=== PATIENT | male | born 1980 | race Caucasian/White ===

== ENCOUNTER 2017-05-20 15:39 | Inpatient (IN) | payer SELFPAY ==
[~2017-05-20] VITALS: Ht 175.3 cm; Wt 83.9 kg
[2017-05-20 16:02] VITALS: BP 154/96
[2017-05-20 17:32] LABS: HEMATOCRIT 46.8 % (36-52); MEAN CORPUSCULAR HEMOGLOBIN 29 pg (27-31); MEAN CORPUSCULAR HGB CONC 34 g/dL (33-37); MEAN CORPUSCULAR VOLUME 84 fL (80-94); PLATELET COUNT (AUTO) 197 K/uL (140-450); RED BLOOD CELL COUNT(AUTO) 5.55 MIL/uL (4.20-6.10); RED CELL DISTRIBUTION WIDTH 13.7 % (11.6-13.7); WHITE BLOOD COUNT (AUTO) 15.6 K/uL (4.8-10.8)
[2017-05-20 17:36] LABS: APPEARANCE,URINE CLEAR (CLEAR); BLOOD, URINE 1+ (NEGATIVE); LEUKOCYTE ESTERASE ,URINE NEGATIVE (NEGATIVE); PROTEIN,URINE 2+ (NEGATIVE); UGLUCOSE NEGATIVE (NEGATIVE)
[2017-05-20 17:39] LABS: COLOR,URINE AMBER (YELLOW); NITRITE, URINE NEGATIVE (NEGATIVE); UROBILINOGEN,URINE 0.2 EU/dL (0.2 - 1)
[2017-05-20 17:41] LABS: ANION GAP 11.7 (8-16); CALCIUM 9.3 mg/dL (8.5-10.1); CARBON DIOXIDE 31.1 mmol/L (21-32); POTASSIUM 4.8 mmol/L (3.5-5.1)
[2017-05-20 17:41] LABS: BILIRUBIN,URINE NEGATIVE (NEGATIVE)
[2017-05-20 17:44] LABS: BACTERIA,URINE RARE /HPF (None Seen); MUCUS,URINE 3+ /LPF (None Seen); SQUAMOUS EPITHELIAL CELL,UR 0-3 /LPF (0-3 (FEW)); WBC,URINE 0-3 /HPF (0-5)
[2017-05-20 17:46] LABS: TOTAL BILIRUBIN 2.7 mg/dL (0.0-1.0); TOTAL PROTEIN, SERUM 8.6 g/dL (6.4-8.2)
--- NOTE | 2017-05-20 18:03 | NUR ---
Patient to bed 04.
[2017-05-20 18:08] LABS: BAND % (MANUAL) 11 % (0-8); LYMPHOCYTES % (MANUAL) 7 % (20-46); MONOCYTES % (MANUAL) 9 % (5-12); NEUTROPHILS % (MANUAL) 73 (43-65); PLATELET ESTIMATE ADEQUATE
--- NOTE | 2017-05-20 18:10 | NUR ---
36M BIB SELF C/O MID-ABDOMINAL PAIN, SHARP, NON-RADIATING, 10/10 X 3 DAYS; PT C/O 3 EPISODES OF VOMITING W/ BLOOD AND 3 EPISODES OF DIARRHEA WITHOUT BLOOD TODAY; ABDOMEN SOFT, NON-TENDER, ACTIVE BOWEL SOUNDS X 4 QUADRANTS; PT AA&OX4, PERRLA, BL LUNG SOUNDS CLEAR, RR EVEN/UNLABORED, SKIN IS WARM/DRY/INTACT AT THIS TIME; PT NOTED W/ HEALING WOUND/SCAB TO RT ELBOW; NO BLEEDING NOTED TO SITE AT THIS TIME; PT RESTING IN BED W/ HOB ELEVATED AND IN LOWEST POSITION; POSITIONED FOR COMFORT; ER MD MADE AWARE OF STATUS. WILL CONTINUE TO MONITOR.
--- NOTE | 2017-05-20 18:17 | NUR ---
PT TAKEN TO CT VIA W/C ACCOMPANIED BY CLIENT SUPPORT CONSULTANT.
[2017-05-20] MEDS ORDERED: HYDROmorphone 1 MG/ML AMP IVP ONE (18:25)
[2017-05-20] MEDS ORDERED: ONDANSETRON 4 MG/2 ML VIAL IVP ONE (18:25)
[2017-05-20] MEDS ORDERED: NACL 0.9% 1,000 ML IV ONE (18:25)
[2017-05-20] MEDS: NACL 0.9% 1,000 ML IV SCH (18:41)
[2017-05-20] MEDS ORDERED: ONDANSETRON 4 MG/2 ML VIAL IVP PRN (18:45)
[2017-05-20] MEDS ORDERED: LORazepam 2 MG/ML VIAL IVP PRN (18:45)
[2017-05-20] MEDS ORDERED: MULTIVITAMIN-12 10 ML, THIAMINE 100 MG, MAGNESIUM SULFATE 50% 2,000 MG, FOLIC ACID 5 MG... IV ONE ×5 (18:50)
--- NOTE | 2017-05-20 19:12 | NUR ---
REPORT GIVEN TO BREE GUEVARA.
--- NOTE | 2017-05-20 19:30 | NUR ---
PATIENT ADMITTED TO UNIT FROM ED, BROUGHT VIA WHEELCHAIR, PT ABLE TO AMBULATE TO BED, PT AAOX4 ON ROOM AIR, NO SOB OR SIGN OF DISTRESS AT THIS TIME, IV TO LEFT AC PATENT AND INTACT, SKIN INTACT WITH SCABS TO RIGHT ARM DRY AND INTACT, DISCUSSED PLAN OF CARE WITH PATIENT, PATIENT VERBALIZED UNDERSTANDING, CALL LIGHT WITHIN REACH. WILL CONTINUE TO MONITOR.
--- NOTE | 2017-05-20 19:41 | NUR ---
Patient will be admitted to care of DR. SEAMAN. Admited to MED-SURG. Will go to room 119A. Belongings list completed. Report to BREE GUEVARA.
--- NOTE | 2017-05-20 22:30 | NUR ---
PT SLEEPING, NO SIGN OF DISTRESS, CALL LIGHT WITHIN REACH. WILL CONTINUE TO MONITOR.
[2017-05-21] VITALS: BP 145/90
--- NOTE | 2017-05-21 00:15 | NUR ---
VITALS STABLE, NO SIGN OF DISTRESS, CALL LIGHT WITHIN REACH. WILL CONTINUE TO MONITOR.
--- NOTE | 2017-05-21 02:30 | NUR ---
PT SLEEPING, NO SIGN OF DISTRESS, CALL LIGHT WITHIN REACH. WILL CONTINUE TO MONITOR.
--- NOTE | 2017-05-21 04:00 | NUR ---
PT SLEEPING, NO SIGN OF DISTRESS, CALL LIGHT WITHIN REACH. WILL CONTINUE TO MONITOR
[2017-05-21] MEDS: NACL 0.9% 1,000 ML IV SCH ×2 (04:43→14:04)
[2017-05-21 06:14] LABS: BASOPHILS # (AUTO) 0.1 K/uL (0.00-0.22); BASOPHILS % (AUTO) 0.6 % (0.0-2.0); EOSINOPHILS # (AUTO) 0.1 K/uL (0-0.4); EOSINOPHILS % (AUTO) 1.2 % (0.0-4.0); HEMATOCRIT 40.9 % (36-52); HEMOGLOBIN 14.1 g/dL (12.0-18.0); LYMPHOCYTES % (AUTO) 8.4 % (20.5-51.1); MEAN CORPUSCULAR HEMOGLOBIN 30 pg (27-31); MEAN CORPUSCULAR HGB CONC 35 g/dL (33-37); MEAN CORPUSCULAR VOLUME 87 fL (80-94); MONOCYTES # (AUTO) 1.2 K/uL (0.8-1.0); MONOCYTES % (AUTO) 9.4 % (1.7-9.3); PLATELET COUNT (AUTO) 162 K/uL (140-450); RED BLOOD CELL COUNT(AUTO) 4.72 MIL/uL (4.20-6.10); RED CELL DISTRIBUTION WIDTH 13.8 % (11.6-13.7); WHITE BLOOD COUNT (AUTO) 12.4 K/uL (4.8-10.8)
[2017-05-21 06:31] LABS: CARBON DIOXIDE 29.2 mmol/L (21-32); CREATININE 0.9 mg/dL (0.7-1.3); POTASSIUM 4.2 mmol/L (3.5-5.1); TOTAL BILIRUBIN 1.9 mg/dL (0.0-1.0); TOTAL PROTEIN, SERUM 6.6 g/dL (6.4-8.2)
[2017-05-21 07:39] LABS: NEUTROPHILS % (AUTO) 80.4 % (42.2-75.2)
--- NOTE | 2017-05-21 07:42 | NUR ---
ENDORSED PATIENT TO DAY RN AT BEDSIDE, PATIENT IN STABLE CONDITION
--- NOTE | 2017-05-21 07:43 | NUR ---
REPORT RECEIVED FROM BAR BACK, PT SLEEPING QUIETLY, RESP EVEN UNLABORED ON ROOM AIR IN NAD, AROUSES EASILY BY VOICE, DENIES PAIN OR DISCOMFORT, LEFT LOWER EXT WITH AMY WRAP, GOOD CMS DISTALLY, PLAN OF CARE REVIEWED, CALL AGUILAR WITHIN REACH, SIDE RAILS UP, BED LOCKED IN LOW POSITION, WILL CONTINUE TO MONITOR. Addendum: 05/21/17 at 0900 by Jaye Gregorio RN ABOVE NOTE DELETED, WRONG PT
--- NOTE | 2017-05-21 07:44 | NUR ---
REPORT RECEIVED FROM PHOTO SPECIALIST, PT SLEEPING QUIETLY, RESP EVEN UNLABORED ON ROOM AIR IN NAD, AROUSES EASILY BY VOICE, DENIES PAIN OR DISCOMFORT, IVF INFUSING SITE CLEAR, PLAN OF CARE REVIEWED, PT AWARE OF NPO, PT DENIES ANY IMMEDIATE NEEDS AT THIS TIME, CALL AGUILAR WITHIN REACH, SIDE RAILS UP, BED LOCKED IN LOW POSITION, WILL CONTINUE TO MONITOR.
[2017-05-21 08:00] VITALS: BP 131/77
[2017-05-21] MEDS: ENOXAPARIN 40 MG/0.4 ML SYR SUBQ SCH (08:45)
--- NOTE | 2017-05-21 08:53 | NUR ---
PATIENT HAS BEEN SCREENED AND CATEGORIZED MODERATE NUTRITION RISK. PATIENT WILL BE SEEN WITHIN 3-5 DAYS OF ADMISSION. 05/23/17-05/25/[address]
--- NOTE | 2017-05-21 11:48 | NUR ---
CM NOTE INITIAL REVIEW FAXED TO [facility] [phone] [place] [phone]
[2017-05-21] MEDS ORDERED: FAMOTIDINE 20 MG/2 ML VIAL IV SCH (13:15)
[2017-05-21] MEDS: MORPHINE SULFATE 4 MG/ML SYR IVP PRN (13:18)
[2017-05-21] MEDS ORDERED: LORazepam 2 MG/ML VIAL IVP PRN (13:20)
--- NOTE | 2017-05-21 13:38 | NUR ---
PT SLEEPING QUIETLY IN NAD, APPEARS IN NAD IN NO PAIN, IVF CONTIUE TO INFUSE, SITE CLEAR, PT STARTED ON CLEAR LIQ DIET, MIHAI WELL SO FAR, WILL CONTINUE TO MONITOR.
[2017-05-21 14:06] LABS: PROTHROMBIN TIME 9.9 secs (10.8-13.4)
[2017-05-21 16:00] VITALS: BP 130/78
--- NOTE | 2017-05-21 16:00 | NUR ---
PT RESTING QUIETLY, AROUSES EASILY BY VOICE, DENIES PAIN OR DISCOMFORT, VSS, BLANKET GIVEN FOR COMFORT, WILL CONTINUE TO MONITOR.
--- NOTE | 2017-05-21 18:47 | NUR ---
PT SITTING UP WATCHING TV IN NAD, DENIES PAIN DENIES ANY IMMEDIATE NEEDS, CALL AGUILAR WITHIN REACH, SIDE RAILS UPX2, BED LOCKED IN LOW POSITION, IVF INFUSING WELL, SITE CLEAR, WILL CONTINUE TO MONITOR.
--- NOTE | 2017-05-21 19:25 | NUR ---
REPORT GIVEN TO FINISH SANDER NURSE, PT IN STABLE CONDITION.
--- NOTE | 2017-05-21 19:30 | NUR ---
RECEIVED REPORT FROM DAY RN AT BEDSIDE, PATIENT IS AAOX4 ON ROOM AIR, NO SOB OR SIGN OF DISTRESS AT THIS TIME, IV TO LT AC PATENT AND INTACT, SKIN INTACT, PT DENIES PAIN AT THIS TIME. DISCUSSED PLAN OF CARE WITH PT, PT VERBALIZED UNDERSTANDING, CALL LIGHT WITHIN REACH. WILL CONTINUE TO MONITOR.
--- NOTE | 2017-05-21 22:00 | NUR ---
PATIENT RESTING IN BED WATCHING TV, NO SIGN OF DISTRESS, CALL LIGHT WITHIN REACH. WILL CONTINUE TO MONITOR
[2017-05-22] VITALS: BP 134/76
--- NOTE | 2017-05-22 00:25 | NUR ---
PT SLEEPING, NO SIGN OF DISTRESS, WILL CONTINUE TO MONITOR.
[2017-05-22] MEDS: NACL 0.9% 1,000 ML IV SCH ×3 (00:46→20:41)
--- NOTE | 2017-05-22 02:41 | NUR ---
PT SLEEPING, NO SIGN OF DISTRESS, CALL LIGHT WITHIN REACH. WILL CONTINUE TO MONITOR.
--- NOTE | 2017-05-22 04:00 | NUR ---
PT SLEEPING, NO SIGN OF DISTRESS, WILL CONTINUE TO MONITOR
[2017-05-22] MEDS: MORPHINE SULFATE 4 MG/ML SYR IVP PRN ×2 (05:27→13:33)
[2017-05-22 06:26] LABS: BASOPHILS # (AUTO) 0.1 K/uL (0.00-0.22); BASOPHILS % (AUTO) 0.6 % (0.0-2.0); EOSINOPHILS # (AUTO) 0.2 K/uL (0-0.4); EOSINOPHILS % (AUTO) 1.7 % (0.0-4.0); HEMATOCRIT 38.7 % (36-52); HEMOGLOBIN 13.3 g/dL (12.0-18.0); LYMPHOCYTES # (AUTO) 1.5 K/uL (2.0-11.5); LYMPHOCYTES % (AUTO) 12.9 % (20.5-51.1); MEAN CORPUSCULAR HEMOGLOBIN 30 pg (27-31); MEAN CORPUSCULAR HGB CONC 34 g/dL (33-37); MEAN CORPUSCULAR VOLUME 86 fL (80-94); MONOCYTES # (AUTO) 1.4 K/uL (0.8-1.0); MONOCYTES % (AUTO) 11.8 % (1.7-9.3); NEUTROPHILS # (AUTO) 8.3 K/uL (1.8-7.7); PLATELET COUNT (AUTO) 148 K/uL (140-450); RED BLOOD CELL COUNT(AUTO) 4.49 MIL/uL (4.20-6.10); RED CELL DISTRIBUTION WIDTH 13.5 % (11.6-13.7); WHITE BLOOD COUNT (AUTO) 11.5 K/uL (4.8-10.8)
[2017-05-22 07:09] LABS: ALBUMIN 2.7 g/dL (3.4-5.0); ANION GAP 9.8 (8-16); CARBON DIOXIDE 28.9 mmol/L (21-32); CREATININE 0.8 mg/dL (0.7-1.3); POTASSIUM 3.7 mmol/L (3.5-5.1); TOTAL BILIRUBIN 1.3 mg/dL (0.0-1.0); TOTAL PROTEIN, SERUM 6.2 g/dL (6.4-8.2)
--- NOTE | 2017-05-22 07:29 | NUR ---
ENDORSED PT TO DAY RN AT BEDSIDE, PT IN STABLE CONDITION
--- NOTE | 2017-05-22 07:30 | NUR ---
REPORT RECEIVED FROM ROUNDING AND BACKING MACHINE OPERATOR NURSE, PT SLEEPING QUIETLY, RESP EVEN UNLABORED ON RA IN NAD, PT AROUSES EASILY BY VOICE, PLAN OF CARE REVIEWED, PT REPORTS SOME ABD PAIN BY DENIES NEED FOR MED, ABD SOFT, FLAT, TENDER TO PALP, DENIES ANY IMMEDIATE NEEDS, CALL AGUILAR WITHIN REACH, SIDE RAILS UP, BED LOCKED IN LOW POSITION, WILL CONTINUE TO MONITOR.
[2017-05-22 08:00] VITALS: BP 138/86
[2017-05-22] MEDS: FAMOTIDINE 20 MG/2 ML VIAL IV SCH (08:34)
[2017-05-22] MEDS: ENOXAPARIN 40 MG/0.4 ML SYR SUBQ SCH (09:00)
--- NOTE | 2017-05-22 11:40 | NUR ---
PT SITTING UP RESTING QUIETLY IN NAD, RESP EVEN UNLABORED, DENIES NEED FOR PAIN MEDS OR NAUSEA, PT REMAINS ON CLEAR LIQ DIET, MIHAI WELL, CALL AGUILAR WITHIN REACH, SIDE RAILS UP, WILL CONTINUE TO MONITOR.
[2017-05-22 16:00] VITALS: BP 133/90
--- NOTE | 2017-05-22 18:55 | NUR ---
LEFT AC IV NOT FLUSHING WELL, INFILTRATED, IV DC'D, CATH TIP INTACT, BLEEDING CONTROLLED. NEW PIV STARTED TO LEFT FA 20G, PT MIHAI WELL, IVF NS CONTINUES TO RUN AT 100ML/HR.
--- NOTE | 2017-05-22 19:15 | NUR ---
REPORT GIVEN TO PROFESSOR OF GERMAN NURSE, PT IN STABLE CONDITION.
--- NOTE | 2017-05-22 19:20 | NUR ---
RECEIVED PT AWAKE SITTING ON BED, DENIES ANY PAIN, VERBALIZED TOLERATING CLEAR LIQUID DIET, IVF INFUSING WELL, PLAN OF CARE DISCUSSED,SAFETY MEASURES IN PLACE, CALL LIGHT WITHIN REACH.
--- NOTE | 2017-05-22 20:30 | NUR ---
PT TOOK SHOWER, ALL NEEDS ATTENDED.
[2017-05-23] VITALS: BP 124/79
--- NOTE | 2017-05-23 | NUR ---
PT SLEEPING, EASILY AROUSABLE, VITAL SIGNS STALE, DENIES ANY PAIN, IVF INFUSING WELL, CONTINUE TO MONITOR CLOSELY.
--- NOTE | 2017-05-23 04:00 | NUR ---
PT SLEEPING, NO SIGNS OF DISTRESS, IVF INFUSING WELL, CONTINUE TO MONITOR CLOSELY.
[2017-05-23] MEDS: NACL 0.9% 1,000 ML IV SCH ×2 (05:55→16:41)
[2017-05-23 06:39] LABS: BASOPHILS # (AUTO) 0.1 K/uL (0.00-0.22); BASOPHILS % (AUTO) 0.9 % (0.0-2.0); EOSINOPHILS # (AUTO) 0.2 K/uL (0-0.4); EOSINOPHILS % (AUTO) 2.2 % (0.0-4.0); HEMATOCRIT 39.5 % (36-52); HEMOGLOBIN 13.8 g/dL (12.0-18.0); LYMPHOCYTES # (AUTO) 1.4 K/uL (2.0-11.5); MEAN CORPUSCULAR HEMOGLOBIN 30 pg (27-31); MEAN CORPUSCULAR HGB CONC 35 g/dL (33-37); MEAN CORPUSCULAR VOLUME 85 fL (80-94); MONOCYTES % (AUTO) 11.3 % (1.7-9.3); NEUTROPHILS # (AUTO) 6.2 K/uL (1.8-7.7); NEUTROPHILS % (AUTO) 69.6 % (42.2-75.2); PLATELET COUNT (AUTO) 175 K/uL (140-450); RED BLOOD CELL COUNT(AUTO) 4.64 MIL/uL (4.20-6.10); RED CELL DISTRIBUTION WIDTH 13.4 % (11.6-13.7); WHITE BLOOD COUNT (AUTO) 8.9 K/uL (4.8-10.8)
[2017-05-23 07:08] LABS: ALBUMIN 2.8 g/dL (3.4-5.0); ANION GAP 10.8 (8-16); CALCIUM 8.3 mg/dL (8.5-10.1); CARBON DIOXIDE 29.9 mmol/L (21-32); CREATININE 0.9 mg/dL (0.7-1.3); POTASSIUM 3.7 mmol/L (3.5-5.1); TOTAL BILIRUBIN 1.3 mg/dL (0.0-1.0); TOTAL PROTEIN, SERUM 6.6 g/dL (6.4-8.2)
--- NOTE | 2017-05-23 07:10 | NUR ---
PT AWAKE, NO SIGNS OF DISTRESS, REPORT GIVEN TO BREE ROBERTS FOR CONTINUITY OF CARE.
--- NOTE | 2017-05-23 07:11 | NUR ---
PT AWAKE AND ALERT, NO SIGNS OF ACUTE DISTRESS. BOWEL SOUNDS ACTIVE IN ALL 4 QUADRANTS. BOWEL AND BLADDER CONTINENCE. SKIN INTACT WITH HEALED SCABS ON RIGHT ARM. AMBULATORY WITH BRP. DENIES PAIN AT THIS TIME. BED IN LOW POSITION WITH BILATERAL HALF SIDE RAILS UP, CALL LIGHT WITHIN REACH. RE-ORIENTED TO HOSPITAL AND UNIT, PT VERBALIZED UNDERSTANDING.
[2017-05-23 08:00] VITALS: BP 142/93
[2017-05-23] MEDS: FAMOTIDINE 20 MG/2 ML VIAL IV SCH (08:08)
[2017-05-23] MEDS: ENOXAPARIN 40 MG/0.4 ML SYR SUBQ SCH (08:09)
[2017-05-23] MEDS: MORPHINE SULFATE 4 MG/ML SYR IVP PRN (08:10)
--- NOTE | 2017-05-23 10:31 | NUR ---
Social Service Note: Per [employer] Rosaline, patient's IEHP is currently not active, patient is self pay.
--- NOTE | 2017-05-23 15:12 | NUR ---
PATIENT SEEN BY DR MONTES, RECEIVED NEW ORDER OKAY TO DISCHARGE AND SS REQUEST PATIENT IS HOMELESS, NOTED.
[2017-05-23 16:00] VITALS: BP 149/88
--- NOTE | 2017-05-23 16:15 | NUR ---
PT AWAKE AND ALERT, NO SIGNS OF ACUTE DISTRESS. PATIENT RECEIVED INFORMATION ON [facility]ACILITIES IN THE AREA WITH PHONE NUMBERS AND ADDRESSES. GAVE PATIENT BUS PASS, STATED HE WILL BE GOING TO A [facility]. D/C'D IV AND CUT OFF WRIST BAND. PATIENT DENIES PAIN AT THIS TIME. INSTRUCTED AND PROVIDED PATIENT WITH WRITTEN DISCHARGE INSTRUCTIONS REGARDING DIAGNOSIS INCLUDING SIGNS AND SYMPTOMS OF WORSENING CONDITION, TO FOLLOW UP WITH PCP WITHIN 1 WEEK AND TO NOT DRINK ANY ALCOHOL, PATIENT VERBALIZED UNDERSTANDING. ESCORTED PATIENT OUT FRONT LOBBY TO DISCHARGE TO [facility] VIA PUBLIC BUS TRANSPORTATION.
== END 2017-05-23 16:15 | disposition home or self-care (01) | DRG 440 ==
LOC: MED 15:39 → MTU 18:44
PROVIDERS: ADMIT Hospitalist; ATTEND Hospitalist
DX: K85.20 Alcohol induced acute pancreatitis without necrosis or infection (principal); F10.10 Alcohol abuse, uncomplicated; K70.9 Alcoholic liver disease, unspecified
CPT/HCPCS: 36415; 80053; 81001; 82150; 83690; 85025; 85610; 85730; 87081; 96365; 96375; 99285; A9153; G0482; J1170; J1650; J2270; J2405; J3411; J3475; J3490; J7030